=== PATIENT | female | born 1965 | race African-American/Black ===

== ENCOUNTER 2016-12-28 11:54 | Emergency (ER) | payer MEDICAID ==
[~2016-12-28] VITALS: Ht 162.6 cm; Wt 70.0 kg
[~2016-12-28 11:54] MED LIST: ALBUTEROL INH; MULTIVITAMINS
[2016-12-28] MEDS ORDERED: KETOROLAC 60MG/2ML VIAL IM ONE (14:30)
[2016-12-28 14:36] VITALS: BP 120/69
== END 2016-12-28 16:04 | disposition home or self-care (01) ==
LOC: ER 14:55
DX: M79.602 Pain in left arm (principal); J45.909 Unspecified asthma, uncomplicated; Z88.6 Allergy status to analgesic agent
CPT/HCPCS: 81025; 96372; 99283; J1885

== ENCOUNTER 2019-05-22 13:35 | Emergency (ER) | payer MEDICAID ==
[~2019-05-22] VITALS: Ht 162.6 cm; Wt 71.0 kg
[2019-05-22 13:56] VITALS: BP 145/99
== END 2019-05-22 17:09 | disposition left against medical advice (07) ==
LOC: ER 13:35
DX: Z53.21 Procedure and treatment not carried out due to patient leaving prior to being seen by health care provider (principal); J45.909 Unspecified asthma, uncomplicated

== ENCOUNTER 2022-02-16 11:32 | Emergency (ER) | payer MEDICAID ==
[~2022-02-16] VITALS: Ht 162.6 cm; Wt 75.0 kg
[2022-02-16] MEDS ORDERED: KETOROLAC 30MG/ML VIAL IM ONE (12:15)
[2022-02-16] MEDS ORDERED: CYCL10TA21 MT (12:16)
[2022-02-16 12:43] VITALS: BP 148/96
== END 2022-02-16 12:47 | disposition home or self-care (01) ==
LOC: ER 11:32
DX: S16.1XXA Strain of muscle, fascia and tendon at neck level, initial encounter (principal); M54.12 Radiculopathy, cervical region; J45.909 Unspecified asthma, uncomplicated; X58.XXXA Exposure to other specified factors, initial encounter; Y93.9 Activity, unspecified; Y92.9 Unspecified place or not applicable; Z88.6 Allergy status to analgesic agent
CPT/HCPCS: 96372; 99283; J1885